=== PATIENT | female | born 1940 | race Asian ===

== ENCOUNTER 2017-01-26 10:02 | Emergency (ER) | payer OTHER, BC ==
[~2017-01-26] VITALS: Ht 149.9 cm; Wt 66.0 kg
[2017-01-26 10:56] LABS: EOSINOPHIL (%) 3.1 % (0-5); EOSINOPHIL COUNT 0.1 K/uL (0-0.3); HEMATOCRIT 38.9 % (36.0-46.0); IMMATURE GRANULOCYTE (%) 0.2 % (0.0-0.7); INSTRUMENT ABS NEUTROPHIL CT 2.4 K/uL; LYMPHOCYTE COUNT 1.3 K/uL (1.0-2.8); MCH 31.3 PG (29.0-34.0); MCHC 33.7 G/DL (30.0-36.0); MCV 93.1 FL (83-99); MEAN PLAT.VOLUME 10.1 uM^3 (9.5-12.4); MONOCYTE (%) 9.1 % (3-12); MONOCYTE COUNT 0.4 K/uL (0-0.8); NEUTROPHIL COUNT 2.4 K/uL (1.8-6.4); PLATELET COUNT 275 K/uL (156-360); RBC DIS.WIDTH-CV 12.8 % (11.8-14.6); RBC DIS.WIDTH-SD 43.6 % (39-53); RED BLOOD COUNT 4.18 M/uL (3.80-5.20); WHITE BLOOD COUNT 4.2 K/uL (4.1-10.2)
[2017-01-26 11:07] LABS: PTT 25.9 (25-32)
[2017-01-26 11:13] LABS: CHLORIDE 105 mEq/L (99-109); POTASSIUM 3.7 mEq/L (3.7-5.4); SODIUM 141 mEq/L (136-147)
[2017-01-26 11:15] LABS: GLUCOSE 100 mg/dL (70-99)
[2017-01-26 11:17] LABS: ANION GAP 11 MEQ/L (2-14); TOTAL BILIRUBIN 0.6 mg/dL (0.0-1.0)
[2017-01-26 11:19] LABS: ALKALINE PHOSPHATASE 45 IU/L (3-129); GFR ESTIMATE (CALCULATED) 52 mL/min/
[2017-01-26 11:20] LABS: UREA NITROGEN (BUN) 19 mg/dL (9-23)
[2017-01-26 11:38] VITALS: BP 151/57
[2017-01-27] MEDS ORDERED: NORCO 5/3251 TABLET PO (22:56)
== END 2017-01-26 12:07 | disposition home or self-care (01) ==
LOC: EME 10:02
PROVIDERS: Nurse Practitioner Family
DX: R04.0 Epistaxis (principal); I10 Essential (primary) hypertension; E78.5 Hyperlipidemia, unspecified; Z88.0 Allergy status to penicillin
CPT/HCPCS: 80053; 85025; 85610; 85730; 99281; 99284

== ENCOUNTER 2017-01-27 18:52 | Emergency (ER) | payer OTHER, BC ==
[~2017-01-27] VITALS: Ht 149.9 cm; Wt 63.6 kg
[2017-01-27] MEDS ORDERED: NORCO 5/3251 TABLET PO (22:56)
[2017-01-27 23:30] VITALS: BP 150/60
== END 2017-01-27 23:33 | disposition home or self-care (01) ==
LOC: EME 18:52
PROC: 2Y41X5Z Packing of Nasal Region using Packing Material (ICD-10-PCS; principal; 2017-01-27)
DX: R04.0 Epistaxis (principal); I10 Essential (primary) hypertension; E78.5 Hyperlipidemia, unspecified; Z88.0 Allergy status to penicillin
CPT/HCPCS: 99281; 99284; J3010